=== PATIENT | female | born 2000 | race Caucasian/White ===

== ENCOUNTER 2022-08-05 08:41 | Inpatient (IN) | payer BC ==
[2022-08-05] MEDS: Lactated Ringers 1,000 ML IV SCH (10:35)
[2022-08-05] MEDS: Oxytocin/Normal Saline 30 UNIT/500 ML BAG IV SCH ×2 (10:39→22:48)
[2022-08-05] MEDS ORDERED: Sodium Chloride 0.9% 10 ML Syringe FLUSH PRN (10:46)
[2022-08-05] MEDS ORDERED: Ondansetron 4 MG/2 ML SDV IVPUSH PRN ×2 (10:46→23:42)
[2022-08-05] MEDS ORDERED: Lactated Ringers 1,000 ML IV ONE (10:46)
[2022-08-05] MEDS ORDERED: Misoprostol 400 MCG (4 X 100 MCG TAB) RECTAL PRN (10:46)
[2022-08-05] MEDS ORDERED: Methylergonovine 0.2 MG/1 ML Amp IM PRN (10:46)
[2022-08-05] MEDS ORDERED: Lidocaine 1% 10 ML MDV INJECT PRN (10:46)
[2022-08-05] MEDS ORDERED: Carboprost Tromethamine 250 MCG/1 ML Amp IM PRN (10:46)
[2022-08-05] MEDS ORDERED: Nalbuphine 20 MG/1 ML Amp IM PRN (10:46)
[2022-08-05] MEDS ORDERED: Oxytocin/Normal Saline 30 UNIT/500 ML BAG IV SCH ×2 (11:00→21:45)
[2022-08-05] MEDS ORDERED: EPINEPHrine 1 MG/ML SDV ONE (20:23)
[2022-08-05] MEDS ORDERED: Sodium Bicarbonate 4.2% 2.5 MEQ/5 ML SDV ONE ×2 (20:23→20:30)
[2022-08-05] MEDS ORDERED: Ondansetron 4 MG/2 ML SDV IV ONE ×2 (20:30→21:00)
[2022-08-05] MEDS ORDERED: Sodium Chloride 0.9% 20 ML SDV IV ONE (20:30)
[2022-08-05] MEDS ORDERED: EPINEPHrine 1 MG/ML SDV IV ONE (20:30)
[2022-08-05] MEDS ORDERED: Morphine PF 10 MG/10 ML SDV IT ONE (20:30)
[2022-08-05] MEDS ORDERED: Dexmedetomidine 200 MCG/2 ML SDV IT ONE (20:30)
[2022-08-05] MEDS ORDERED: Promethazine 25 MG/ML SDV IM ONE (21:00)
[2022-08-05] MEDS ORDERED: Ketorolac 30 MG/ML SDV IVPUSH ONE (21:00)
[2022-08-05] MEDS ORDERED: Sodium Chloride 0.9% 10 ML Syringe IV ONE (21:00)
[2022-08-05] MEDS ORDERED: Dexamethasone 4 MG/ML SDV IV ONE (21:00)
[2022-08-05] MEDS ORDERED: Phenylephrine 1% 10 MG/ML SDV IV ONE (21:00)
[2022-08-05] MEDS ORDERED: ePHEDrine 50 MG/ML SDV IV ONE (21:00)
[2022-08-05] MEDS ORDERED: Succinylcholine 200 MG/10 ML MDV ONE (21:21)
[2022-08-05] MEDS ORDERED: Oxytocin/Normal Saline 60 UNIT/1,000 ML BAG ONE (21:21)
[2022-08-05] MEDS ORDERED: ceFAZolin 1 GM Vial ONE (21:21)
[2022-08-05] MEDS ORDERED: Vasopressin 20 Units/1 ML MDV ONE (21:21)
[2022-08-05] MEDS ORDERED: cefTRIAXone 2 GM Vial ONE (21:39)
[2022-08-05] MEDS ORDERED: Oxytocin 10 Units/1 ML SDV IM PRN (21:39)
[2022-08-05] MEDS ORDERED: Lactated Ringers 1,000 ML IV SCH ×2 (21:45→23:00)
[2022-08-05] MEDS: ceFAZolin 2 GM in Premix Bag 1 BAG IV ONE (21:50)
[2022-08-05] MEDS ORDERED: Acetaminophen/oxyCODONE 325-5 MG Tab PO PRN ×2 (22:48)
[2022-08-05] MEDS ORDERED: Naloxone 2 MG/2 ML Syringe IVPUSH PRN ×2 (22:48→23:42)
[2022-08-05] MEDS ORDERED: Witch Hazel Medicated Pads 100/Jar TOP PRN (22:48)
[2022-08-05] MEDS ORDERED: diphenhydrAMINE 50 MG/ML SDV IVPUSH PRN (22:48)
[2022-08-05] MEDS ORDERED: ePHEDrine 50 MG/ML SDV IVPUSH PRN ×2 (22:48→23:42)
[2022-08-05] MEDS ORDERED: Promethazine 25 MG/ML SDV IM PRN (23:42)
[2022-08-05] MEDS ORDERED: Lactated Ringers 500 ML IV SCH ×2 (23:45)
[2022-08-06] MEDS: Ketorolac 30 MG/ML SDV IVPUSH SCH ×3 (06:34→10:37)
[2022-08-06] MEDS: Lactated Ringers 1,000 ML IV SCH ×2 (08:50→17:00)
[2022-08-06] MEDS: Docusate Sodium 100 MG Cap PO PRN ×2 (08:53→22:48)
[2022-08-06] MEDS: Simethicone 80 MG Tab.Chew PO SCH ×4 (08:54→22:48)
[2022-08-06] MEDS: Prenatal Multivitamin with Calcium/Folic Acid/Iron Tab PO SCH (08:55)
[2022-08-06] MEDS: ceFAZolin 2 GM in Premix Bag 1 BAG IV ONE (11:55)
[2022-08-06] MEDS: Acetaminophen 325 MG Tab PO PRN ×2 (16:19→22:47)
[2022-08-06] MEDS ORDERED: Ketorolac 30 MG/ML SDV IVPUSH ONE (17:00)
[2022-08-07] MEDS: Ibuprofen 800 MG Tab PO PRN ×2 (02:04→10:36)
[2022-08-07] MEDS: Simethicone 80 MG Tab.Chew PO SCH ×2 (08:36→14:22)
[2022-08-07] MEDS: Acetaminophen 325 MG Tab PO PRN (08:37)
[2022-08-07] MEDS: Docusate Sodium 100 MG Cap PO PRN (08:37)
[2022-08-07] MEDS: Prenatal Multivitamin with Calcium/Folic Acid/Iron Tab PO SCH (08:46)
[2022-08-07] MEDS ORDERED: Measles, Mumps & Rubella Vaccine 0.5 ML SDV SUBCUT ONE (09:19)
[2022-08-07] MEDS ORDERED: Acetaminophen/oxyCODONE 325-5 MG Tab PO ONE ×2 (13:00→13:19)
== END 2022-08-07 13:20 | disposition home or self-care (01) | DRG 540 ==
LOC: DL.OBCHECK 08:41 → DL.OB 10:16 → OBSVTOIN 22:08 → DL.OB 22:08
PROVIDERS: ADMIT Family Medicine; ATTEND Family Medicine
PROC: 10D00Z1 Extraction of Products of Conception, Low, Open Approach (ICD-10-PCS; principal; 2022-08-05)
PROC: 10907ZC Drainage of Amniotic Fluid, Therapeutic from Products of Conception, Via Natural or Artificial Opening (ICD-10-PCS; 2022-08-05)
PROC: 4A1HXCZ Monitoring of Products of Conception, Cardiac Rate, External Approach (ICD-10-PCS; 2022-08-05)
PROC: 0UJD7ZZ Inspection of Uterus and Cervix, Via Natural or Artificial Opening (ICD-10-PCS; 2022-08-05)
PROC: 3E0134Z Introduction of Serum, Toxoid and Vaccine into Subcutaneous Tissue, Percutaneous Approach (ICD-10-PCS; 2022-08-05)
DX: O14.14 Severe pre-eclampsia complicating childbirth (principal); Z3A.38 38 weeks gestation of pregnancy; Z37.0 Single live birth; O99.344 Other mental disorders complicating childbirth; F41.1 Generalized anxiety disorder; O99.814 Abnormal glucose complicating childbirth; O45.93 Premature separation of placenta, unspecified, third trimester; O76 Abnormality in fetal heart rate and rhythm complicating labor and delivery; Z23 Encounter for immunization; Z20.822 Contact with and (suspected) exposure to COVID-19
CPT/HCPCS: 01967; 01968; 36415; 51702; 59025; 85027; 86850; 86900; 86901; 90471; 90707; A9270-GY; J0171; J0330; J0690; J1100; J1885; J2270; J2370; J2405; J2550; J2590; J3490; J7120; U0002

== ENCOUNTER 2024-12-29 12:32 | Inpatient (IN) | payer BC ==
[2024-12-29] MEDS ORDERED: Sodium Chloride 0.9% 10 ML Syringe FLUSH PRN ×2 (13:32→14:22)
[2024-12-29] MEDS: Lactated Ringers 1,000 ML IV ONE (13:40)
[2024-12-29 14:12] LABS: HEMOGLOBIN 11.6 g/dL (12.0-16.0); MEAN CORPUSCULAR HEMOGLOBIN 27.7 pg (27.0-34.0); MEAN CORPUSCULAR HGB CONC 33.1 g/dL (33.0-35.0); MEAN CORPUSCULAR VOLUME 83.5 fL (80-100); RED BLOOD CELL COUNT 4.19 10^6/uL (4.2-5.4); WHITE BLOOD CELL COUNT,WBC 13.3 10^3/uL (5.0-10.0)
[2024-12-29] MEDS ORDERED: Oxytocin 10 Units/1 ML SDV IM PRN (14:22)
[2024-12-29] MEDS ORDERED: Tranexamic Acid 1,000 MG in Sodium Chloride 0.9% 100 ML IV PRN ×2 (14:22→16:10)
[2024-12-29] MEDS ORDERED: Methylergonovine 0.2 MG Tab PO PRN (14:22)
[2024-12-29] MEDS ORDERED: Carboprost Tromethamine 250 MCG/1 ML Amp IM PRN (14:22)
[2024-12-29] MEDS ORDERED: Oxytocin/Lactated Ringers 30 UNIT/500 ML BAG IV SCH (14:30)
[2024-12-29] MEDS ORDERED: Lactated Ringers 1,000 ML IV SCH ×2 (14:30→16:15)
[2024-12-29 14:53] LABS: ALANINE AMINOTRANSFERASE,ALT 18 U/L (14-59); ASPARTATE AMNIOTRANSFERASE,AST 7 U/L (15-37); BLOOD UREA NITROGEN,BUN 9 mg/dL (7-18); CREATININE 0.53 mg/dL (0.55-1.02); LACTATE DEHYDROGENASE,LDH 132 U/L (81-234)
[2024-12-29 14:56] LABS: ESTIMATED GFR 132 mL/min (>=60)
[2024-12-29 15:18] LABS: APPEARANCE,URINE CLEAR (CLEAR); BILIRUBIN,URINE NEGATIVE (NEGATIVE); COLOR,URINE YELLOW (YELLOW); GLUCOSE,URINE NEGATIVE (NEGATIVE); KETONES,URINE NEGATIVE (NEGATIVE); LEUKOCYTE ESTERASE,URINE NEGATIVE (NEGATIVE); NITRITE,URINE NEGATIVE (NEGATIVE); OCCULT BLOOD,URINE NEGATIVE (NEGATIVE); PROTEIN,URINE TRACE (NEGATIVE)
[2024-12-29 15:31] LABS: CREATININE,URINE RAND 138.2 mg/dL (No establ ref range); PROTEIN CREATININE RATIO,URINE 223.6 mg/g (<150.0); PROTEIN,URINE RANDOM 30.9 mg/dL (0.0-11.9)
[2024-12-29] MEDS ORDERED: Methylergonovine 0.2 MG/1 ML Amp IM PRN (16:10)
[2024-12-29] MEDS ORDERED: Acetaminophen 325 MG Tab PO PRN (16:10)
[2024-12-29] MEDS ORDERED: Ondansetron 4 MG/2 ML SDV IVPUSH PRN (16:10)
[2024-12-29] MEDS ORDERED: Misoprostol 100 MCG Tab RECTAL PRN (16:10)
[2024-12-29] MEDS ORDERED: Naloxone 2 MG/2 ML Syringe IVPUSH PRN (16:10)
[2024-12-29] MEDS ORDERED: diphenhydrAMINE 50 MG/ML SDV IVPUSH PRN (16:10)
[2024-12-29] MEDS ORDERED: ePHEDrine 50 MG/ML SDV IVPUSH PRN (16:10)
[2024-12-29] MEDS ORDERED: Phenylephrine 1% 10 MG/ML SDV ONE (16:46)
[2024-12-29] MEDS ORDERED: Dexamethasone 4 MG/ML SDV ONE (16:46)
[2024-12-29] MEDS ORDERED: Lidocaine 2% with EPINEPHrine 1:200,000 20 ML SDV ONE (16:46)
[2024-12-29] MEDS ORDERED: ePHEDrine 50 MG/ML SDV ONE (16:46)
[2024-12-29] MEDS ORDERED: Ondansetron 4 MG/2 ML SDV ONE (16:46)
[2024-12-29] MEDS ORDERED: Tranexamic Acid 1,000 MG/10 ML Vial ONE (16:47)
[2024-12-29] MEDS ORDERED: Water For Injection, Sterile 20 ML ONE (16:47)
[2024-12-29] MEDS ORDERED: dexmedeTOMIDine HCl 200 MCG/2 ML SDV ONE (16:47)
[2024-12-29] MEDS ORDERED: Glycopyrrolate 0.2 MG/ML 2 ML SDV ONE (16:47)
[2024-12-29] MEDS: Lactated Ringers 1,000 ML IV SCH (17:54)
[2024-12-29] MEDS: Oxytocin/Normal Saline 30 UNIT/500 ML BAG IV SCH (17:58)
[2024-12-29] MEDS: Simethicone 80 MG Tab.Chew PO SCH (18:09)
[2024-12-29] MEDS: Ketorolac 30 MG/ML SDV IVPUSH SCH (18:09)
[2024-12-29] MEDS: ceFAZolin 2 GM Vial IVPUSH ONE (20:18)
[2024-12-29] MEDS: Sodium Chloride 0.9% 10 ML Syringe FLUSH SCH (20:20)
[2024-12-29] MEDS: Docusate Sodium 100 MG Cap PO PRN (20:33)
[2024-12-29] MEDS: Acetaminophen/oxyCODONE 325-5 MG Tab PO PRN (20:33)
[2024-12-29] MEDS: Ibuprofen 800 MG Tab PO SCH (21:38)
[2024-12-30] MEDS: Ketorolac 30 MG/ML SDV IVPUSH SCH (00:05)
[2024-12-30] MEDS: Acetaminophen/oxyCODONE 325-5 MG Tab PO PRN (04:10)
[2024-12-30] MEDS: Prenatal Multivitamin with Calcium/Folic Acid/Iron Tab PO SCH (08:44)
[2024-12-30] MEDS ORDERED: Ibuprofen 800 MG Tab PO SCH (12:00)
[2024-12-30] MEDS: Ibuprofen 800 MG Tab PO SCH (14:10)
[2024-12-30 15:53] LABS: HEMOGLOBIN 9.7 g/dL (12.0-16.0); MEAN CORPUSCULAR HEMOGLOBIN 27.6 pg (27.0-34.0); MEAN CORPUSCULAR HGB CONC 32.3 g/dL (33.0-35.0); MEAN CORPUSCULAR VOLUME 85.5 fL (80-100); RED BLOOD CELL COUNT 3.51 10^6/uL (4.2-5.4); WHITE BLOOD CELL COUNT,WBC 15.2 10^3/uL (5.0-10.0)
[2024-12-31] MEDS ORDERED: ePHEDrine 50 MG/ML SDV IV ONE (09:47)
[2024-12-31] MEDS ORDERED: Tranexamic Acid 1,000 MG/10 ML Vial IV ONE (09:47)
[2024-12-31] MEDS ORDERED: Ketorolac 30 MG/ML SDV IVPUSH ONE (09:47)
[2024-12-31] MEDS ORDERED: EPINEPHrine 1:10,000 1 MG/10 ML Syringe IV ONE (09:47)
[2024-12-31] MEDS ORDERED: Famotidine 20 MG/2 ML SDV IV ONE (09:47)
[2024-12-31] MEDS ORDERED: Dexamethasone 4 MG/ML SDV IV ONE (09:47)
[2024-12-31] MEDS ORDERED: fentaNYL 100 MCG/2 ML SDV IV ONE (09:47)
[2024-12-31] MEDS ORDERED: Sodium Chloride 0.9% 20 ML IV ONE ×2 (09:47)
[2024-12-31] MEDS ORDERED: dexmedeTOMIDine HCl 200 MCG/2 ML SDV IV ONE (09:47)
[2024-12-31] MEDS ORDERED: Oxytocin/Normal Saline 30 UNIT/500 ML BAG IV ONE (09:47)
[2024-12-31] MEDS ORDERED: Ondansetron 4 MG/2 ML SDV IV ONE (09:47)
[2024-12-31] MEDS ORDERED: Phenylephrine 1% 10 MG/ML SDV IV ONE (09:47)
[2024-12-31] MEDS ORDERED: Ropivacaine 100 ML EPIDUR ONE (09:47)
== END 2024-12-31 11:46 | disposition home or self-care (01) | DRG 540 ==
LOC: DL.OBCHECK 12:32 → DL.OB 14:16 → OBSVTOIN 15:29 → DL.OB 15:29
PROVIDERS: ADMIT Family Medicine; ATTEND Family Medicine
PROC: 10D00Z1 Extraction of Products of Conception, Low, Open Approach (ICD-10-PCS; principal; 2024-12-29 14:30)
DX: O60.14X0 Preterm labor third trimester with preterm delivery third trimester, not applicable or unspecified (principal); O34.211 Maternal care for low transverse scar from previous cesarean delivery; O14.94 Unspecified pre-eclampsia, complicating childbirth; Z37.0 Single live birth; Z3A.36 36 weeks gestation of pregnancy; Z79.899 Other long term (current) drug therapy; D62 Acute posthemorrhagic anemia; O90.81 Anemia of the puerperium
CPT/HCPCS: 36415; 59025; 81003; 82565; 82570; 83615; 84156; 84450; 84460; 84520; 84550; 85027; 86850; 86900; 86901; A9270-GY; J0171; J1100; J1885; J2371; J2405; J2590; J2795; J3010; J3490; J7120